=== PATIENT | male | born 1950 | race Caucasian/White ===

== ENCOUNTER 2016-12-06 13:14 | Emergency (ER) | payer MEDICARE, OTHER ==
[~2016-12-06] VITALS: Ht 177.8 cm; Wt 74.1 kg
[2016-12-06 13:15] VITALS: BP 140/78; PULSE 88; RESP 20; TEMP 97.7; O2SAT 100
[2016-12-06] MEDS ORDERED: SUCR1TAB PO (13:36)
[2016-12-06 13:37] VITALS: BP 137/67; PULSE 85; RESP 16; O2SAT 100
--- NOTE | 2016-12-06 14:39 | PD ---
HPI Chief Complaint: Pain: Acute or Chronic Time Seen by Provider: 14:25 Travel History International Travel<30 days: No Contact w/Intl Traveler<30days: No Traveled to known affect area: No History of Present Illness HPI 66-year-old male complains of left groin pain. Patient states the pain sharp pain intermittent pain localized left groin. Patient denies any pain radiation. Patient denies any nausea vomiting diarrhea. Patient denies dysuria or frequency. She denies any fever chills. Patient states the pain is worse with movement and straining. Patient states the pain is better at rest or lying down. Patient status post left inguinal hernia repair years ago. PFS Social History Alcohol Use: No Tobacco Use: No Substance Use: No Allergies-Medications (Allergen,Severity, Reaction): Coded Allergies: Sulfa (Verified Allergy, Unknown, 12/06/16) Reported Meds & Prescriptions Reported Meds & Active Scripts Active Reported Sucralfate 1 Gm Tab 1 Gm PO QID on empty stomach Review of Systems General / Constitutional: No: Fever Eyes: No: Visual changes HENT: No: Headaches Cardiovascular: No: Chest Pain or Discomfort Respiratory: No: Shortness of Breath Gastrointestinal: No: Abdominal Pain Genitourinary: No: Dysuria Musculoskeletal: No: Pain Skin: No Rash Neurologic: No: Weakness Psychiatric: No: Depression Endocrine: No: Polydipsia Hematologic/Lymphatic: No: Easy Bruising Physical Exam Narrative GENERAL: Well-nourished, well-developed patient. SKIN: Warm and dry. HEAD: Normocephalic. EYES: No scleral icterus. No injection or drainage. NECK: Supple, trachea midline. No JVD or lymphadenopathy. CARDIOVASCULAR: Regular rate and rhythm without murmurs, gallops, or rubs. RESPIRATORY: Breath sounds equal bilaterally. No accessory muscle use. GASTROINTESTINAL: Abdomen soft, non-tender, nondistended. MUSCULOSKELETAL: No cyanosis, or edema. BACK: Nontender without obvious deformity. No CVA tenderness. Patient has a small reducible left inguinal hernia. No tenderness on palpation of the abdomen, inguinal area. No mass palpable. No lymphadenopathy. exam: No tenderness on palpation of the testicle, spermatic cord. No urethral discharge. No lesion noted. Data Data Last Documented VS Vital Signs Date Time Temp Pulse Resp B/P Pulse Ox O2 Delivery O2 Flow Rate FiO2 12/06/16 13:37 85 16 137/67 100 Room Air 12/06/16 13:15 97.7 MDM Medical Decision Making Medical Screen Exam Complete: Yes Emergency Medical Condition: Yes Differential Diagnosis Differential diagnosis including musculoskeletal, inguinal hernia, epididymitis , fracture dislocation. Narrative Course 66-year-old male with intermittent left groin pain. Diagnosis Primary Impression: Reducible left inguinal hernia Patient Instructions: General Instructions Additional Instructions: Tylenol Advil for pain. Follow-up with surgeon. Return immediately if increased pain, nausea vomiting, fever, unable to reduce the hernia. Med/Other Pt SpecificInfo: No Change to Meds Disposition: 01 DISCHARGE HOME Condition: Stable Pollo Arias MD Dec 06, 2016 14:39
== END 2016-12-06 14:59 | disposition home or self-care (01) ==
LOC: NEPA 13:14
DX: K40.90 Unilateral inguinal hernia, without obstruction or gangrene, not specified as recurrent (principal)
CPT/HCPCS: 99283